=== PATIENT | female | born 1960 | race African-American/Black ===

== ENCOUNTER 2017-01-01 11:22 | Emergency (ER) | payer BC, MEDICAID ==
[~2017-01-01] VITALS: Ht 170.2 cm; Wt 111.0 kg
[2017-01-01] MEDS ORDERED: ACETAMINOPHEN 325MG TABLET PO ONE (12:30)
[2017-01-01] MEDS ORDERED: TETANUS, DIPHTHERIA, PERTUSSIS VAC/PF 0.5ML (>7YR OLD) IM ONE (12:30)
[2017-01-01 13:05] VITALS: BP 168/78
== END 2017-01-01 13:07 | disposition home or self-care (01) ==
LOC: ER 11:32
DX: S00.01XA Abrasion of scalp, initial encounter (principal); E11.9 Type 2 diabetes mellitus without complications; Z98.890 Other specified postprocedural states; Z87.891 Personal history of nicotine dependence; W01.198A Fall on same level from slipping, tripping and stumbling with subsequent striking against other object, initial encounter; Y93.89 Activity, other specified; Y92.018 Other place in single-family (private) house as the place of occurrence of the external cause
CPT/HCPCS: 90471; 90715; 99283; Z7610